=== PATIENT | female | born 1930 | race African-American/Black ===

== ENCOUNTER 2016-10-12 17:55 | Emergency (ER) ==
[2016-10-12 18:08] VITALS: BP 122/73; TEMP 98.2; BMI 24.5
--- NOTE | 2016-10-12 18:12 | ED.PDOC ---
General ED Provider: Dr. RENAN MOULTON JR Chief Complaint: Ankle Pain/Injury Stated Complaint: PAIN LEFT FOOT AND ANKLE DENIES INJURY TENDER TO TOUCH[End]3 days 98.2 84 16 95% 122/73 5/10 Time Seen by Physician: 18:12 Mode of Arrival: Wheelchair Information Source: Patient Exam Limitations: No limitations Nursing and Triage Documentation Reviewed and Agree: No Review of Systems - Review Of Systems Constitutional: Reports: No symptoms Eyes: Reports: No symptoms Ears, Nose, Mouth, Throat: Reports: No symptoms Respiratory: Reports: No symptoms Cardiac: Reports: No symptoms GI: Reports: No symptoms : Reports: No symptoms Musculoskeletal: Reports: Joint pain, Other (left foot and ankle 1st mtp appears reddened edema primariy at ankle) Skin: Reports: Change in color Neurological: Reports: No symptoms Endocrine: Reports: No symptoms Hematologic/Lymphatic: Reports: No symptoms All Other Systems: Other Past Medical History - Past Medical History Endocrine: Reports: None Cardiovascular: Reports: Hypertension, CHF Respiratory: Reports: None Hematological: Reports: None Gastrointestinal: Reports: None Genitourinary: Reports: None Neuro/Psych: Reports: TIA Musculoskeletal: Reports: None Cancer: Reports: None Last Menstrual Period: N/A Other Pertinent Past Medical History: htn chf tia - Surgical History General Surgical History: Reports: Other (CATARACT SURGERY BOTH EYES INGROWN LEFT GREAT TOENDAIL ) - Family History Family History: Reports: Unknown - Social History Smoking Status: Never smoker Hx Substance Use: No Alcohol Screening: None Physical Exam - Physical Exam Appearance: Well-appearing, Thin Pain Distress: Moderate Neck: Supple Respiratory: Airway patent Musculoskeletal: Edema (left ankle tender left foot and ankle with erythema first MT) Skin: Warm, Dry, Normal color Neurological: Sensation intact, Motor intact, Reflexes intact, Cranial nerves intact, Alert, Oriented Psychiatric: Affect appropriate, Mood appropriate Re-Evaluation - Re-Evaluation Time of Re-Evaluation: 19:21 (pain resolved still exquisitely tender) Status: Improved (pain resolved still exquisitely tender) Critical Care Note - Critical Care Note Total Time (mins): 0 Course - Course Hematology/Chemistry: 10/12/16 18:20 10/12/16 18:20 Orders, Labs, Meds: Lab Review 10/12/16 18:20 WBC 5.97 RBC 4.25 Hgb 13.4 Hct 40.2 MCV 94.6 MCH 31.5 H MCHC 33.3 RDW Coeff of Yovani 11.9 Plt Count 266 Immature Gran % (Auto) 0.5 Neut % (Auto) 51.3 Lymph % (Auto) 33.8 Door % (Auto) 9.2 Eos % (Auto) 4.2 Baso % (Auto) 1.0 Immature Gran # (Auto) 0.0 Neut # 3.1 Lymph # 2.0 Door # 0.6 Eos # 0.3 Baso # 0.1 Sodium 141 Potassium 4.7 Chloride 105 Carbon Dioxide 26 Anion Gap 14.7 BUN 28 H Creatinine 1.25 Estimated GFR (MDRD) 49.00 BUN/Creatinine Ratio 22.40 Glucose 97 Uric Acid 9.5 H Calcium 9.8 Total Bilirubin 0.49 AST 19 ALT 16 Alkaline Phosphatase 65 Total Protein 7.5 Albumin 3.3 L Globulin 4.2 Albumin/Globulin Ratio 0.79 Orders Category Date Time Status ED IV/MEDIPORT/POWERPORT .ONCE EMERGENCY 10/12/16 18:08 Active CBC W/ AUTO DIFF Stat LAB 10/12/16 18:20 Completed COMPREHENSIVE METABOLIC PANEL Stat LAB 10/12/16 18:20 Completed URIC ACID Stat LAB 10/12/16 18:20 Completed 0.9 % Sodium Chloride [Saline Flush] MEDS 10/12/16 18:08 Ordered 1 syr IVF PRN PRN 0.9 % Sodium Chloride [Saline Flush] MEDS 10/12/16 18:18 Ordered 1 syr IVF PRN PRN Ketorolac Tromethamine [Toradol] MEDS 10/12/16 18:18 Discontinued 30 mg IVP ONCE STA Medications Generic Name Dose Route Start Last Admin Trade Name Freq PRN Reason Stop Dose Admin Sodium Chloride 1 syr 10/12/16 18:08 10/12/16 18:43 Saline Flush IVF 1 syr PRN PRN Administration To flush IV Sodium Chloride 1 syr 10/12/16 18:18 Saline Flush IVF PRN PRN To flush IV Discontinued Medications Generic Name Dose Route Start Last Admin Trade Name Freq PRN Reason Stop Dose Admin Ketorolac Tromethamine 30 mg 10/12/16 18:18 10/12/16 18:41 Toradol IVP 10/12/16 18:19 30 mg ONCE STA Administration Vital Signs: Temp Pulse Resp BP Pulse Ox 10/12/16 17:56 98.2 F 84 16 122/73 95 Departure - Departure Time of Disposition: 19:21 Disposition: HOME SELF-CARE Discharge Problem: Gout attack Qualifiers: Gout site: toe Gout etiology: unspecified cause Laterality: left Qualifier Code : (M10.9) Gout, unspecified Instructions: Gout (ED) Condition: Good Pt referred to PMD for follow-up: Yes Additional Instructions: follow up with PMD one week call in morning inform of condition and schedule follow up return if worse Toradol for pain (may use 2 aleve twice a day instead) take with food discuss other medications with Dr Betancourt Prescriptions: Ketorolac Tromethamine [Toradol] 10 mg PO QID PRN #20 tablet PRN Reason: PAIN Allergies/Adverse Reactions: Allergies No Known Allergies Allergy (Unverified 10/12/16 18:03) Home Medications: Ambulatory Orders Furosemide [Lasix Tab] 20 mg PO DAILY 10/12/16 Gabapentin [Neurontin] 100 mg PO DAILY 10/12/16 Ketorolac Tromethamine [Toradol] 10 mg PO QID PRN #20 tablet 10/12/16 Lisinopril 10 mg PO DAILY 10/12/16 Metoprolol Succinate 25 mg PO DAILY 10/12/16 Potassium Chloride [Klor-Con 10] 10 meq PO DAILY 10/12/16
[2016-10-12] MEDS ORDERED: TORADOL IVP STA (18:18)
[2016-10-12 18:26] LABS: BASOPHILS # (AUTO) 0.1 K/uL (0-0.2); EOSINOPHILS # (AUTO) 0.3 K/ul (0.0-0.7); EOSINOPHILS % (AUTO) 4.2 % (0.0-7.0); HEMATOCRIT 40.2 % (37.0-47.0); HEMOGLOBIN 13.4 g/dl (12.0-16.0); IMMATURE GRANULOCYTE % (AUTO) 0.5 % (0.0-5.0); LYMPHOCYTES % (AUTO) 33.8 (10.0-50.0); MEAN CORPUSCULAR HEMOGLOBIN 31.5 pg (27.0-31.0); MEAN CORPUSCULAR HGB CONC 33.3 (31.8-35.4); MEAN CORPUSCULAR VOLUME 94.6 fl (81.0-99.0); MONOCYTES # (AUTO) 0.6 K/uL (0.4-2.0); MONOCYTES % (AUTO) 9.2 (0-10); NEUTROPHILS # (AUTO) 3.1 K/ul (2.0-6.9); NEUTROPHILS % (AUTO) 51.3; PLATELET COUNT 266 10^3/uL (140-440); RED BLOOD COUNT 4.25 10^6/ul (4.20-5.40); WHITE BLOOD COUNT 5.97 K/ul (4.6-10.2)
[2016-10-12 18:57] LABS: ALBUMIN 3.3 g/dL (3.4-5.0); ALBUMIN/GLOBULIN RATIO 0.79; ANION GAP 14.7; BILIRUBIN,TOTAL 0.49 mg/dL (0.00-1.20); BUN/CREATININE RATIO 22.4; CALCIUM 9.8 mg/dL (8.2-10.2); CREATININE 1.25 mg/dL (0.60-1.30); POTASSIUM 4.7 mmol/L (3.5-5.10); TOTAL PROTEIN 7.5 g/dL (5.8-8.1); URIC ACID 9.5 mg/dL (2.4-6.0)
== END 2016-10-12 19:58 | disposition home or self-care (01) ==
LOC: ED 17:55
DX: M10.9 Gout, unspecified (principal); I10 Essential (primary) hypertension; I50.9 Heart failure, unspecified; Z86.73 Personal history of transient ischemic attack (TIA), and cerebral infarction without residual deficits; Z79.899 Other long term (current) drug therapy
CPT/HCPCS: 36415; 80053; 84550; 85025; 96374; 99283

== ENCOUNTER 2018-10-26 12:08 | Outpatient (CLI) ==
--- NOTE | 2018-10-26 13:25 | DI ---
EXAM: CHEST FRONTAL AND LATERAL VIEWS HISTORY: Cough, wheezing. COMPARISON: 10/16/2007 FINDINGS: Heart size upper limit normal. 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 Increasing e ctasia of the thoracic aorta. No acute infiltrates are seen. No vascular congestion. There is no c onsolidation, visible pleural fluid or pneumothorax. Bones reveal no acute fracture. IMPRESSION: No acute cardiopulmonary process.
== END 2018-10-26 12:09 | disposition home or self-care (01) ==
LOC: RAD 12:08
PROVIDERS: ATTEND Family Medicine
DX: I50.22 Chronic systolic (congestive) heart failure (principal); I10 Essential (primary) hypertension; N18.9 Chronic kidney disease, unspecified; D64.9 Anemia, unspecified; R06.2 Wheezing; R05 Cough